=== PATIENT | female | born 1985 | race Caucasian/White ===

== ENCOUNTER 2018-03-24 13:30 | Observation (INO) | payer OTHER ==
[~2018-03-24] VITALS: Ht 165.1 cm; Wt 105.2 kg
[2018-03-24 20:10] VITALS: BP 110/63
[2018-03-24 20:53] LABS: GLUCOMETER DEV NAME(LOC) 4S 8; GLUCOSE,POINT OF CARE 124 MG/DL (70-110)
[2018-03-25 06:49] LABS: HEMOGLOBIN A1C 5.6 % (4.5-6.2)
[2018-03-25] MEDS ORDERED: PNV11TAB PO (16:26)
[2018-03-25] MEDS ORDERED: GLYB2.5 PO (16:26)
== END 2018-03-25 12:00 | disposition home or self-care (01) ==
LOC: 4S 13:30
PROVIDERS: ADMIT Obstetrics & Gynecology; ATTEND Obstetrics & Gynecology
DX: O62.9 Abnormality of forces of labor, unspecified (principal); O24.419 Gestational diabetes mellitus in pregnancy, unspecified control; Z3A.36 36 weeks gestation of pregnancy
CPT/HCPCS: 36415; 59025 ×2; 82947; 82962; 83036; G0378 ×2

== ENCOUNTER 2018-03-25 12:49 | Inpatient (IN) | payer OTHER ==
[~2018-03-25] VITALS: Ht 165.1 cm; Wt 105.2 kg
[~2018-03-25 12:49] MED LIST: 0.9% SODIUM CHLORIDE 10 ML VIAL IVP ONE; EPHEDrine SULFATE 50 MG/ML VIAL IM ONE; FentaNYL CITRATE-PF 100 MCG/2 ML VIAL IVP ONE; ONDANSETRON HCL 4 MG/2 ML VIAL IVP ONE; OXYTOCIN 10 UNITS/ML VIAL IM ONE
[2018-03-25] MEDS ORDERED: CITRIC ACID/SODIUM CITRATE 30 ML SOLUTION UDCUP PO ONE (16:00)
[2018-03-25] MEDS ORDERED: METOCLOPRAMIDE HCL 5 MG/ML 2 ML VIAL IVP ONE (16:00)
[2018-03-25] MEDS ORDERED: RINGERS SOLUTION,LACTATED 1,000 ML IV SCH (16:00)
[2018-03-25 16:18] LABS: BASOPHILS % (AUTO) 0.3 % (0.0-2.0); EOSINOPHILS % (AUTO) 0.6 % (1.0-6.0); HEMATOCRIT 35.9 % (36-46); HEMOGLOBIN 11.9 g/dL (12.0-16.0); LYMPHOCYTES # (AUTO) 1.8 K/uL (1.0-4.8); MEAN CORPUSCULAR HGB CONC 33.1 G/dL (31.0-37.0); MEAN CORPUSCULAR VOLUME 85 fL (80-100); MONOCYTES # (AUTO) 0.6 K/uL (0.1-1.0); MONOCYTES % (AUTO) 6.2 % (2.0-9.0); NEUTROPHILS # (AUTO) 6.7 K/uL (1.8-7.7); NEUTROPHILS % (AUTO) 72.9 % (40.0-70.0); PLATELET COUNT (AUTO) 280 K/uL (150-450); RED BLOOD CELL COUNT(AUTO) 4.24 MIL/uL (4.00-5.20)
[2018-03-25 16:22] VITALS: BP 117/69
[2018-03-25] MEDS ORDERED: PNV11TAB PO (16:26)
[2018-03-25] MEDS ORDERED: GLYB2.5 PO (16:26)
[2018-03-25] MEDS ORDERED: ACETAMINOPHEN 1000 MG/ISO-OSM 100 ML IV ONE (18:38)
[2018-03-25] MEDS ORDERED: MORPHINE SULFATE/PF 0.5 MG/ML 10 ML AMP ONE (18:44)
[2018-03-25] MEDS ORDERED: ONDANSETRON HCL 4 MG/2 ML VIAL IVP PRN (19:45)
[2018-03-25] MEDS ORDERED: NALOXONE HCL 0.4 MG/ML VIAL IVP PRN (19:45)
[2018-03-25] MEDS ORDERED: FentaNYL CITRATE-PF 100 MCG/2 ML VIAL IVP PRN ×2 (19:45)
[2018-03-25] MEDS ORDERED: HYDROmorphone 2 MG/ML SYRINGE IVP PRN ×2 (19:45)
[2018-03-25] MEDS ORDERED: MEPERIDINE-PF 25 MG/ML VIAL IVP PRN (19:45)
[2018-03-25] MEDS ORDERED: OxyCODONE HCL/ACETAMINOPHEN 10-325 MG TABLET PO PRN (19:45)
[2018-03-25] MEDS ORDERED: DiphenhydrAMINE HCL 50 MG/ML VIAL IVP PRN (19:45)
[2018-03-25] MEDS ORDERED: ACETAMINOPHEN/CODEINE 300-30 MG TABLET PO PRN ×2 (20:00)
[2018-03-25] MEDS ORDERED: LANOLIN 7 GM OINTMENT TP PRN (20:00)
[2018-03-25] MEDS: DEXTROSE 5%-0.45% SODIUM CHL 1,000 ML IV SCH (23:45)
[2018-03-25] MEDS: ACETAMINOPHEN 1000 MG/ISO-OSM 100 ML IV SCH (23:54)
[2018-03-26] MEDS: DEXTROSE 5%-0.45% SODIUM CHL 1,000 ML IV SCH ×3 (04:38→15:02)
[2018-03-26] MEDS: ACETAMINOPHEN 1000 MG/ISO-OSM 100 ML IV SCH ×3 (06:00→20:47)
[2018-03-26] MEDS: MAGNESIUM HYDROXIDE SUSPENSION 30 ML UDCUP PO SCH ×2 (09:27→20:45)
[2018-03-27] MEDS: IBUPROFEN 800 MG TABLET PO SCH ×4 (00:24→20:47)
[2018-03-27] MEDS: MAGNESIUM HYDROXIDE SUSPENSION 30 ML UDCUP PO SCH ×2 (08:07→21:00)
[2018-03-28] MEDS: IBUPROFEN 800 MG TABLET PO SCH (03:02)
[2018-03-28] MEDS ORDERED: IBUP-2071 PO (11:00)
[2018-03-28] MEDS ORDERED: FERR-89 PO (11:01)
== END 2018-03-28 13:40 | disposition home or self-care (01) | DRG 785 ==
LOC: OBSVTOIN 14:51 → 4S 14:51
PROVIDERS: ADMIT Obstetrics & Gynecology; ATTEND Obstetrics & Gynecology
PROC: 10D00Z1 Extraction of Products of Conception, Low, Open Approach (ICD-10-PCS; principal; 2018-03-25)
PROC: 0UB70ZZ Excision of Bilateral Fallopian Tubes, Open Approach (ICD-10-PCS; 2018-03-25)
DX: O34.211 Maternal care for low transverse scar from previous cesarean delivery (principal); Z3A.36 36 weeks gestation of pregnancy; Z37.0 Single live birth; O77.0 Labor and delivery complicated by meconium in amniotic fluid
CPT/HCPCS: 86850; 86900; 86901; 86920; 87081; 88302; J0131; J0690; J2274; J2405; J2590; J2765; J3010; J3490; J7120